=== PATIENT | male | born 1945 | race Caucasian/White ===

== ENCOUNTER → 2025-06-10 11:09 | Outpatient (CLI) | payer MEDICARE, OTHER, SELFPAY ==
--- NOTE | 2025-06-10 11:12 | DI.RAD.S_ITS ---
PROCEDURE: XR SHOULDER LT MIN 2V INDICATIONS: SHOULDER PAIN TECHNIQUE: 3 views of the shoulder were acquired. COMPARISON: None. FINDINGS: Bones: No fractures or dislocations. No suspicious bony lesions. Visualized ribs appear intact. 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 Soft tissues: No suspicious soft tissue calcifications. 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 IMPRESSION: No acute osseous abnormality. High-riding humeral head, which can be seen with chronic superior rotator cuff tear. Dictated by: José Miguel Miller M.D. on 06/10/2025 at 16:05 Approved by: José Miguel Miller M.D. on 06/10/2025 at 16:06
== END ==
PROVIDERS: PCP Family Medicine; Referring Provider Family Medicine; Visit Provider Family Medicine
DX: M19.012 Primary osteoarthritis, left shoulder (principal); M25.512 Pain in left shoulder; G89.29 Other chronic pain
CPT/HCPCS: 73030